=== PATIENT | female | born 1945 | race African-American/Black ===

== ENCOUNTER 2018-11-15 23:41 | Inpatient (IN) | payer BC, OTHER ==
[~2018-11-15] VITALS: Ht 172.7 cm; Wt 65.3 kg
[2018-11-16 00:34] LABS: APPEARANCE,URINE Clear (CLEAR); BILIRUBIN,URINE Negative (NEGATIVE); BLOOD, URINE Negative Ery/uL (NEGATIVE); COLOR,URINE Yellow (YELLOW); KETONES,URINE Negative (NEGATIVE); LEUKOCYTE ESTERASE ,URINE Small (NEGATIVE); NITRITE, URINE Negative (NEGATIVE); PH,URINE 5.5 (5.0-8.0); PROTEIN,URINE 30 mg/dl (NEGATIVE); UGLUCOSE Negative (NEGATIVE)
--- NOTE | 2018-11-16 00:47 | NUR ---
BIBDAUGHTER FROM [facility]. TO ER BED 13. AAOX2. NAD NOTED, BREATHING EVEN AND UNLABORED. COOPERATIVE AND COMPLAINTS. AMBULATORY. C/O AGGRESSIVE BEHAVIOR REPORTED HITTING STAFF AT THE BOARD AND CARE SHE IS STAYING AT. DAUGTHER REPORTS THAT SHE HAS BEEN MORE AND MORE AGGRESSIVE TOWARDS STAFF. PT IS STAYING AT [facility] WITH HER MOTHER. AT BESIDE FOR EVAL. AWAITING ORDERS
[2018-11-16 00:52] LABS: BASOPHILS % (AUTO) 0.6 % (0.0-2.0); EOSINOPHILS % (AUTO) 1.1 % (0.0-6.0); HEMATOCRIT 40 % (33-45); HEMOGLOBIN 12.9 g/dL (11.5-14.8); LYMPHOCYTES # (AUTO) 1.9 /CMM (0.8-4.8); LYMPHOCYTES % (AUTO) 40.7 % (20.0-44.0); MEAN CORPUSCULAR HGB CONC 33 g/dl (31.0-36.0); MEAN CORPUSCULAR VOLUME 88 fL (82-100); MONOCYTES # (AUTO) 0.5 /CMM (0.1-1.30); MONOCYTES % (AUTO) 10.4 % (2.0-12.0); NEUTROPHILS # (AUTO) 2.2 /CMM (1.8-8.9); NEUTROPHILS % (AUTO) 47.2 % (43.0-81.0); PLATELET COUNT (AUTO) 129 /CMM (150-450); RED BLOOD CELL COUNT(AUTO) 4.52 MIL/uL (4.0-5.2); WHITE BLOOD COUNT (AUTO) 4.7 K/uL (4.3-11.0)
[2018-11-16 01:03] LABS: CALCIUM, SERUM 8.9 mg/dL (8.5-10.1); CARBON DIOXIDE 25 mmol/L (21-32); CHLORIDE 108 mmol/L (98-107); CREATININE 0.8 mg/dL (0.6-1.3); GLUCOSE 104 mg/dL (74-106); POTASSIUM 3.6 mmol/L (3.5-5.1); SODIUM SERUM 141 mmol/L (136-145); UREA NITROGEN, BLOOD 20 mg/dL (7-18)
[2018-11-16 01:07] LABS: BACTERIA,URINE Few /HPF (None Seen); RBC,URINE 0-2 /HPF (0-2); SQUAMOUS EPITHELIAL CELL,UR Few /HPF (None Seen)
[2018-11-16 01:10] LABS: ALANINE AMINOTRANSFERASE 62 U/L (12-78); ALBUMIN 3.5 g/dL (3.4-5.0); ALCOHOL, BLOOD < 3 mg/dL (0-0); ALKALINE PHOSPHATASE 63 U/L (46-116); ASPARTATE AMINOTRANSFERASE 44 U/L (15-37); BILIRUBIN,DIRECT 0.1 mg/dL (0.0-0.2); BILIRUBIN,TOTAL 0.3 mg/dL (0.2-1.0); TOTAL PROTEIN, SERUM 7.6 g/dL (6.4-8.2)
[2018-11-16 01:11] LABS: ACETAMINOPHEN 0 ug/ml (10-30)
[2018-11-16 01:22] LABS: THYROID STIMULATING HORMONE 3.262 uIU/mL (0.358-3.74)
[2018-11-16] MEDS ORDERED: HYDR-4077 PO (04:12)
--- NOTE | 2018-11-16 04:20 | NUR ---
PT TO [facility] VIA WHEELCHAIR.
[2018-11-16 04:25] VITALS: BP 190/100
--- NOTE | 2018-11-16 04:25 | NUR ---
GPS ADMISSION NOTES: ADMITTED A 73-YR OLD MALE, FROM [facility] ON 5150 FOR GD. PER HOLD, PT. IS CONFUSED AND DELUSIONAL. PATIENT WAS AGGRESSIVE WITH HER CAREGIVER BUT DOES NOT REMEMBER THE EVENTS. PATIENT IS AGITATED. UNABLE TO PROVIDE FOR HER FOOD, RETIREMENT OR CLOTHING D/T MENTAL DISORDER. UPON FACE TO FACE ASSESSMENT, PATIENT IS AWAKE AND ALERT AND ORIENTED X1. PATIENT IS CALM ,COOPERATIVE, PLEASANT, CONFUSED, DISORIENTED, INTERACTS WHEN ENGAGED. NO AGITATION NOTED. REALITY ORIENTATION PROVIDED. PT. WAS ADVISED OF THE HOLD. PT'S RIGHTS DISCUSSED GUIDE TO PRESCRIPTION MEDICATIONS GIVEN. IN NO APPARENT DISTRESS NOTED. BELONGINGS WERE INVENTORIED AND CHECKED FOR CONTRABAND. PT. IS UNDER THE PSYCHIATRIC CARE OF DR. SANDERSON ORDERS OBTAINED, AND UNDER THE CARE OF TRESSA MORRIS. NOTIFIED OF PT'S ADMISSION AND MED RECON WELL PT'S ELEVATED BP. PER TRESSA MORRIS MED RECON WILL BE DONE BY AM PROVIDER AND FOR ELEVATED BP NO NEW ORDER GIVEN AT THIS TIME. SKIN ASSESSMENT PERFORMED INTACT. PT. REFUSED TO SIGN ADMITTING CONSENTS D/T MENTAL STATUS. BED LOCKED AND PLACED IN LOWEST POSITION. SAFETY PRECAUTIONS FOR FALL INITIATED. CALL MALLOY IN REACH. WILL CONTINUE TO MONITOR PT. Q15 MINS. FOR SAFETY AND BEHAVIOR. Addendum: 11/16/18 at 0650 by FOREIGN BENZ RN 0640- RECHECKED BP144/91 HR 60
[2018-11-16] MEDS ORDERED: MAGNESIUM HYDROXIDE 30 ML UDC PO PRN (05:00)
[2018-11-16] MEDS ORDERED: ACETAMINOPHEN 325 MG TABLET PO PRN (05:00)
[2018-11-16] MEDS ORDERED: MAG HYDROX/AL HYDROX/SIMETH 30 ML UDC PO PRN (05:00)
[2018-11-16] MEDS: LORAZEPAM 0.5 MG TABLET PO PRN (05:39)
[2018-11-16 06:40] VITALS: BP 144/91
[2018-11-16 07:36] LABS: CREATININE 0.8 mg/dL (0.6-1.3)
[2018-11-16 08:00] VITALS: BP 160/78
[2018-11-16] MEDS: hydrALAZINE HCL 50 MG TABLET PO SCH (10:16)
--- NOTE | 2018-11-16 12:20 | NUR ---
Initial discharge planning: Pt was staying with Bety, a caregiver and family friend who also operates [facility], a board and care facility in [place], [place], before being admitted to [facility]. Per pt�s daughter, Sonal, the caregiver, Bety , is open to having pt return to board and care as long as pt is appropriate and compliant with her medication. SW will work with the pt, pt family, and the MD regarding appropriate discharge planning. SW will form a safe and proper discharge.
--- NOTE | 2018-11-16 12:21 | NUR ---
SW spoke with pt's daughter and next of kin, Sonal Young [[phone]], who confirmed her participation in her mother's plan of care. Per, pt's daughter, her mother has been stuggling with dementia for the past 6 years and has become increasingly aggressive. Pt is now staying with Bety, a personal friend of the daughter who also owns a board a care facility, [facility], [address] in [place], [place]. Per pt, the initial plan would be for her mother to return to the care of Bety, if she is appropriate for that facility. Otherwise, daughter is also open to exploring other options for her mother.
--- NOTE | 2018-11-16 12:27 | NUR ---
SHEYLA spoke with Bety , personal friend and caregiver of pt. Bety confirmed that she will be able to accept pt at her [facility], [facility] at [address] [place] [address], as long as pt is appropriate for the level of care that she is able to provide and compliant with her medication
[2018-11-16] MEDS: CEPHALEXIN MONOHYDRATE 250 MG CAPSULE PO SCH ×3 (14:04→23:00)
--- NOTE | 2018-11-16 14:04 | NUR ---
RN NOTE: PATIENT WAS SLEEPING, ABX ADMINISTERED LATE.
--- NOTE | 2018-11-16 15:37 | NUR ---
Group Note: Pt attended group therapy session on 11/16/18 at 2:30pm discussing conflict resolution techniques for while they are in the hospital and after discharge but was not engaged and did not participate due to cognitive impairment.
[2018-11-16 16:00] VITALS: BP 142/78
[2018-11-16] MEDS: QUETIAPINE FUMARATE 25 MG TABLET PO SCH (17:37)
[2018-11-16 20:35] VITALS: BP 143/64
[2018-11-16] MEDS: TEMAZEPAM 7.5 MG CAPSULE PO PRN (23:00)
[2018-11-17] MEDS: CEPHALEXIN MONOHYDRATE 250 MG CAPSULE PO SCH ×4 (06:33→21:27)
[2018-11-17 08:00] VITALS: BP 150/78
[2018-11-17] MEDS: QUETIAPINE FUMARATE 25 MG TABLET PO SCH ×2 (08:10→16:21)
[2018-11-17] MEDS: hydrALAZINE HCL 50 MG TABLET PO SCH (08:11)
[2018-11-17] MEDS: LORAZEPAM 0.5 MG TABLET PO PRN ×2 (08:11→19:45)
--- NOTE | 2018-11-17 08:12 | NUR ---
RN NOTE: PATIENT RESTLESS THIS MORNING WITH INCREASED ANXIETY, PRN ATIVAN GIVEN.
[2018-11-17 09:16] LABS: CHOLESTEROL 157 mg/dL (<200); HDL CHOLESTEROL 43 mg/dL (40-60); LDL 104 mg/dL (0-99); TRIGLYCERIDES 65 mg/dL (30-150)
--- NOTE | 2018-11-17 09:20 | NUR ---
UR Note: SHEYLA faxed a clinical review to [facility] with attention to Ronda to the fax number: [phone], and [facility] to the fax number: [phone].
[2018-11-17 16:00] VITALS: BP 142/72
--- NOTE | 2018-11-17 16:29 | NUR ---
GROUP NOTE: SW prompted pt to attend group on 11/17/18 at 2:30pm discussing goal setting for while they are in the hospital and after discharge, but pt was sleeping and not easily aroused.
--- NOTE | 2018-11-17 17:58 | NUR ---
RN NOTE: TRIED TO COLLECT URINE FOR UA FROM PATIENT MULTIPLE TIMES BUT PATIENT HAS ALREADY USED THE REST ROOM. WILL CONTINUE TO ATTEMPT ON GETTING URINE SAMPLE.
--- NOTE | 2018-11-17 18:55 | NUR ---
RN NOTE: URINE COLLECTED. CONTACTED LAB FOR QUALITY CONTROL TECH.
--- NOTE | 2018-11-17 20:00 | NUR ---
ATIVAN 0.5 MG ADMINISTERED TO THE PATIENT FOR PACING IN THE MAR WAY
[2018-11-17 20:26] VITALS: BP 140/61
[2018-11-17] MEDS: TEMAZEPAM 7.5 MG CAPSULE PO PRN (21:28)
[2018-11-18] MEDS: CEPHALEXIN MONOHYDRATE 250 MG CAPSULE PO SCH ×4 (06:00→23:47)
[2018-11-18 08:00] VITALS: BP 158/89
[2018-11-18] MEDS: hydrALAZINE HCL 50 MG TABLET PO SCH (08:20)
[2018-11-18] MEDS: QUETIAPINE FUMARATE 25 MG TABLET PO SCH ×2 (08:20→16:19)
--- NOTE | 2018-11-18 09:42 | NUR ---
UR Note: SHEYLA faxed a clinical review to [facility] with attention to Ronda to the fax number: [phone].
--- NOTE | 2018-11-18 09:42 | NUR ---
UR Note: SHEYLA faxed a clinical review to [facility] to the fax number: [phone].
[2018-11-18] MEDS: LORAZEPAM 0.5 MG TABLET PO PRN (12:19)
--- NOTE | 2018-11-18 12:21 | NUR ---
RN NOTE: PATIENT APPEARS TO BE RESTLESS AND ANXIOUS, PRN ATIVAN GIVEN.
--- NOTE | 2018-11-18 13:57 | NUR ---
RN NOTE: CONTACTED CAROL ANN IN REGARDS TO CHANGING HER DIET TO REGULAR FROM CARDIAC. MD IS OK WITH DIET ORDER CHANGE. WILL INITIATE.
--- NOTE | 2018-11-18 15:24 | NUR ---
GROUP NOTE: SW prompted pt to attend group on 11/18/18 at 2:30pm discussing managing mental health by being compliant with medication for while they are in the hospital and after discharge, but pt unable to attend.
[2018-11-18 16:00] VITALS: BP 132/72
[2018-11-18 20:00] VITALS: BP 148/82
[2018-11-18 21:08] VITALS: BP 148/82
[2018-11-18] MEDS: DONEPEZIL 5 MG TABLET PO SCH (21:43)
[2018-11-18] MEDS: TEMAZEPAM 7.5 MG CAPSULE PO PRN (23:52)
--- NOTE | 2018-11-18 23:52 | NUR ---
CATRACHO BHATT NOTES AWAKE,RESTORIL 7.7MG PO GIVEN.WILL MONITOR HOURS OF SLEEP. Addendum: 11/18/18 at 2356 by BRETT MILAN RN GIVEN 7.5MG OF RESTORIL
[2018-11-19] MEDS: CEPHALEXIN MONOHYDRATE 250 MG CAPSULE PO SCH ×4 (05:58→23:45)
--- NOTE | 2018-11-19 06:47 | NUR ---
GPS RN NOTES AWAKE,CALM AND QUIET,MED COMPLIANT,NON COMBATIVE.
[2018-11-19 08:00] VITALS: BP 198/99
[2018-11-19] MEDS: QUETIAPINE FUMARATE 25 MG TABLET PO SCH ×2 (08:21→16:59)
[2018-11-19] MEDS: hydrALAZINE HCL 50 MG TABLET PO SCH (08:21)
--- NOTE | 2018-11-19 08:37 | NUR ---
UR Note: SHEYLA faxed a clinical review to [facility] to the fax number: [phone]
--- NOTE | 2018-11-19 08:38 | NUR ---
UR Note: SHEYLA faxed a clinical review to [facility] with attention to Ronda to the fax number: [phone].
[2018-11-19 16:00] VITALS: BP 148/84
[2018-11-19] MEDS: LORAZEPAM 0.5 MG TABLET PO PRN (20:17)
--- NOTE | 2018-11-19 20:19 | NUR ---
GPS RN NOTES: PT.NOTED VERY AGGRESSIVE, ANXIOUS , HYPERVERBAL, YELLING ,SCREAMING ,NOT FOLLOWING ANY REDIRECTIONS ,PACING IN ROOM HALLWAY,RESTLESS, ATIVAN 0.5 MG PO PRN GIVEN , WILL CONTINUE TO MONITOR.
[2018-11-19 20:32] VITALS: BP 157/84
[2018-11-19] MEDS: DONEPEZIL 5 MG TABLET PO SCH (21:10)
[2018-11-20] MEDS: LORAZEPAM 0.5 MG TABLET PO PRN (03:41)
[2018-11-20] MEDS: CEPHALEXIN MONOHYDRATE 250 MG CAPSULE PO SCH ×4 (05:15→23:01)
[2018-11-20 08:00] VITALS: BP 186/94
[2018-11-20] MEDS: hydrALAZINE HCL 50 MG TABLET PO SCH (08:56)
[2018-11-20] MEDS: QUETIAPINE FUMARATE 25 MG TABLET PO SCH ×2 (08:56→17:00)
[2018-11-20 16:00] VITALS: BP 166/89
[2018-11-20 20:00] VITALS: BP 152/91
[2018-11-20] MEDS: DONEPEZIL 5 MG TABLET PO SCH (21:15)
[2018-11-20] MEDS: TEMAZEPAM 7.5 MG CAPSULE PO PRN (23:01)
[2018-11-21] MEDS: CEPHALEXIN MONOHYDRATE 250 MG CAPSULE PO SCH (05:35)
[2018-11-21 08:00] VITALS: BP 165/98
[2018-11-21] MEDS: QUETIAPINE FUMARATE 25 MG TABLET PO SCH ×2 (09:05→16:39)
[2018-11-21] MEDS: hydrALAZINE HCL 50 MG TABLET PO SCH (09:05)
[2018-11-21 16:00] VITALS: BP 165/89
[2018-11-21] MEDS: LORAZEPAM 0.5 MG TABLET PO PRN (16:39)
--- NOTE | 2018-11-21 17:32 | NUR ---
RN NOTE: PATIENT WAS FEELING RESTLESS, ANXIOUS. PRN ATIVAN GIVEN PO
--- NOTE | 2018-11-21 17:55 | NUR ---
RN NOTE: PATIENT'S BP WAS 165/89 P 80. LUISA, [employer] CONTACTED. ORDERED HYDRALAZINE 10 MG PO ONE TIME ONLY.
[2018-11-21] MEDS ORDERED: hydrALAZINE HCL 10 MG TABLET PO ONE (18:00)
[2018-11-21 20:28] VITALS: BP 150/80
[2018-11-21] MEDS: DONEPEZIL 5 MG TABLET PO SCH (21:15)
[2018-11-22 08:00] VITALS: BP 154/87
[2018-11-22] MEDS: LORAZEPAM 0.5 MG TABLET PO PRN (09:08)
[2018-11-22] MEDS: QUETIAPINE FUMARATE 25 MG TABLET PO SCH ×3 (09:08→21:10)
[2018-11-22] MEDS: hydrALAZINE HCL 50 MG TABLET PO SCH ×2 (09:08→16:38)
--- NOTE | 2018-11-22 09:38 | NUR ---
UR Note: SHEYLA faxed a clinical review to [facility] to the fax number: [phone]
--- NOTE | 2018-11-22 09:38 | NUR ---
UR Note: SHEYLA faxed a clinical review to [facility] with attention to Ronda to the fax number: [phone].
--- NOTE | 2018-11-22 10:44 | NUR ---
RN NOTE: PATIENT WAS VERY ANXIOUS AND RESTLESS. PRN ATIVAN PO GIVEN.
[2018-11-22] MEDS: MEMANTINE HCL 5 MG TABLET PO SCH ×2 (13:11→16:37)
[2018-11-22 14:02] LABS: BASOPHILS % (AUTO) 0.3 % (0.0-2.0); EOSINOPHILS % (AUTO) 2.9 % (0.0-6.0); HEMATOCRIT 42 % (33-45); HEMOGLOBIN 13.3 g/dL (11.5-14.8); LYMPHOCYTES # (AUTO) 1.8 /CMM (0.8-4.8); LYMPHOCYTES % (AUTO) 30.5 % (20.0-44.0); MEAN CORPUSCULAR HGB CONC 32 g/dl (31.0-36.0); MEAN CORPUSCULAR VOLUME 88 fL (82-100); MONOCYTES # (AUTO) 0.5 /CMM (0.1-1.30); NEUTROPHILS # (AUTO) 3.4 /CMM (1.8-8.9); NEUTROPHILS % (AUTO) 58.3 % (43.0-81.0); PLATELET COUNT (AUTO) 162 /CMM (150-450); RED BLOOD CELL COUNT(AUTO) 4.73 MIL/uL (4.0-5.2); WHITE BLOOD COUNT (AUTO) 5.9 K/uL (4.3-11.0)
[2018-11-22 14:23] LABS: ALANINE AMINOTRANSFERASE 63 U/L (12-78); ALBUMIN 3.3 g/dL (3.4-5.0); ALKALINE PHOSPHATASE 62 U/L (46-116); ASPARTATE AMINOTRANSFERASE 36 U/L (15-37); BILIRUBIN,TOTAL 0.2 mg/dL (0.2-1.0); CALCIUM, SERUM 9.2 mg/dL (8.5-10.1); CARBON DIOXIDE 27 mmol/L (21-32); CHLORIDE 106 mmol/L (98-107); GLUCOSE 141 mg/dL (74-106); MAGNESIUM 2.1 mg/dL (1.8-2.4); SODIUM SERUM 142 mmol/L (136-145); TOTAL PROTEIN, SERUM 7.7 g/dL (6.4-8.2); UREA NITROGEN, BLOOD 20 mg/dL (7-18)
[2018-11-22 16:00] VITALS: BP 147/76
[2018-11-22 20:10] VITALS: BP 158/92
[2018-11-22] MEDS: DONEPEZIL 5 MG TABLET PO SCH (21:10)
[2018-11-23 08:00] VITALS: BP 131/92
[2018-11-23] MEDS: MEMANTINE HCL 5 MG TABLET PO SCH ×2 (08:50→16:44)
[2018-11-23] MEDS: hydrALAZINE HCL 50 MG TABLET PO SCH ×3 (08:51→16:44)
[2018-11-23] MEDS: QUETIAPINE FUMARATE 25 MG TABLET PO SCH ×3 (08:54→21:18)
--- NOTE | 2018-11-23 11:18 | NUR ---
UR Note: SHEYLA faxed a clinical review to [facility] with attention to Ronda to the fax number: [phone].
--- NOTE | 2018-11-23 11:19 | NUR ---
UR Note: SHEYLA faxed a clinical review to [facility] to the fax number: [phone].
--- NOTE | 2018-11-23 11:24 | NUR ---
SW spoke with Bety , personal friend and caregiver of pt and stated that the pt is being discharged the following day and the SW inquired about whether or not the pt can go to [facility]. Bety stated that she had spoken to the pts daughter and that the daughter wanted to take the pt to her home first. SW stated that she would contact the daughter in that case.
--- NOTE | 2018-11-23 11:27 | NUR ---
SHEYLA called the pt's daughter and next of kin, Sonal Young [[phone]], and informed her that the pts discharge date has been set for the following day. She stated that she would like to come pick the pt up around 4:30pm and take her to her home located at [address] [place] [address], [place] [id number].
--- NOTE | 2018-11-23 13:46 | NUR ---
SHEYLA spoke to Amber ([phone]) from [facility] and she stated that the pts insurance may be covered at their facility and asked the SW to send a referral over while the daughter is contacted regarding this change in the discharge plan.
--- NOTE | 2018-11-23 13:48 | NUR ---
SHEYLA faxed a referral to [facility] with attention to Amber to the fax number: [phone].
--- NOTE | 2018-11-23 13:48 | NUR ---
SHEYLA called the pts daughter, Perfecto Kinsey ([phone]), and informed her that the pts insurance may be accepted at the snf and that a referral was being sent over so that the paperwork can be reviewed. SHEYLA stated that she would inform the family once a decision is made from the facility.
[2018-11-23 16:00] VITALS: BP 146/87
[2018-11-23] MEDS: DONEPEZIL 5 MG TABLET PO SCH (21:18)
[2018-11-23 21:49] VITALS: BP 179/90
[2018-11-23] MEDS: TEMAZEPAM 7.5 MG CAPSULE PO PRN (21:50)
[2018-11-23 22:00] VITALS: BP 145/88
--- NOTE | 2018-11-24 08:55 | NUR ---
UR Note: SHEYLA faxed a clinical review to [facility] with attention to Ronda to the fax number: [phone].
--- NOTE | 2018-11-24 08:55 | NUR ---
UR Note: SHEYLA faxed a clinical review to [facility] to the fax number: [phone].
[2018-11-24] MEDS: MEMANTINE HCL 5 MG TABLET PO SCH (09:06)
[2018-11-24] MEDS: hydrALAZINE HCL 50 MG TABLET PO SCH ×2 (09:08→12:30)
[2018-11-24] MEDS: QUETIAPINE FUMARATE 25 MG TABLET PO SCH ×2 (09:08→12:32)
[2018-11-24 09:18] VITALS: BP 164/90
--- NOTE | 2018-11-24 10:09 | NUR ---
SW spoke to Misa ([phone]) from [facility] who stated that the pt was not accepted to their facility.
--- NOTE | 2018-11-24 10:14 | NUR ---
SHEYLA called the pt's daughter and next of kin, Sonal Young [[phone]], and informed her that the pt was not accepted to [facility]. She stated that she would arrive around 4:30pm to warehouse order picker the pt.
--- NOTE | 2018-11-24 10:16 | NUR ---
UR Note: SHEYLA called Sadia at [facility] ([phone]. [phone]) and informed her that the pt will be discharging today to her daughter's house in [place] and she stated that she would make a psychiatry appointment for the pt and will call the SW back.
--- NOTE | 2018-11-24 10:27 | NUR ---
Perfecto Kinsey ([phone]), pts daughter, called the SW and asked about the reasoning behind the pt not being accepted to [facility] and then asked about the reasoning behind a SNF placement. She then stated that she would like to look into SNF options that the insurance company would be willing to offer but the SW informed her that the insurance company would need to see a high need for authorization. SW informed her that a discharge order has been placed and that the pts sister will be arriving to pick the pt up today.
[2018-11-24 12:30] VITALS: BP 157/89
--- NOTE | 2018-11-24 15:17 | NUR ---
Discharge Note: Pt was discharged back to her daughter�s home located at [address], [place] [address]; ([phone]). Pts daughter, Sonal ([phone])�s son, picked up the pt up around 3PM. Upon discharge, the pt appeared to be in a euthymic mood and presented with a calm affect. Pt denied both suicidal and homicidal ideation as well as auditory and visual hallucinations. Pt will be under the care of her psychiatrist, Dr. Stef Dinero, located at [address], [address], [place] [address]; phone: [phone]; fax: [phone]. Appt with her psychiatrist is on 12/25/18 at 10:30am. Pt also has a therapy appointment with Dr. Dunia Cote at the same location on 11/29/18 at 2pm. Pt will also be under the care of her home comfort advisor, Dr. Escalante, located at [address], [place] [address]; .
--- NOTE | 2018-11-24 15:18 | NUR ---
UR Note: SHEYLA faxed a discharge clinical to [facility] to the fax number: [phone].
--- NOTE | 2018-11-24 15:18 | NUR ---
UR Note: SHEYLA faxed a discharge clinical to [facility] with attention to Ronda to the fax number: [phone].
--- NOTE | 2018-11-24 15:55 | NUR ---
GROUP NOTE: Goal: Patient will attend group being held today from 11AM-11:45AM in the activities room and participate and/or actively listen to peers and be respectful. Intervention: SW invited patient to attend group session with peers regarding their support system. SW respected patient�s self-determination and will continue to invite patient to group. Response: Patient declined to participate in today�s group social service worker session. Plan: Patient will be invited to attend next social service worker group session held.
--- NOTE | 2018-11-24 16:18 | NUR ---
CLIPMAN NOTE: PATIENT IS A 73 YEAR OLD FEMALE DISCHARGED TO DAUGHTER'S HOME LOCATED AT [address] [place] [address] [facility] [id number] . PATIENT IS IN STABLE CONDITION. VSS. NO ACUTE DISTRESS NOTED. NO COMPLAINTS. COMPLIANT WITH MEDICATION MANAGEMENT. COOPERATIVE WITH PLAN OF CARE. PSYCHIATRIC TREATMENT PLANS MET. MEDICAL TREATMENT PLANS DEFERRED FOR CONTINUAL MONITORING. DENIES SI/HI VAH AT THE TIME OF DISCHARGE. SKIN INTACT AND DOCUMENTED IN CHART. EDUCATED PATIENT ABOUT AFTERCARE WITH COPY PROVIDED. RETURNED PERSONAL BELONGINGS TO PATIENT. MEDICATIONS RECONCILED WITH TRESSA MORAN AND DR. SANDERSON ALONG WITH PSYCHIATRIC DISCHARGE ORDERS. DISCHARGE PAPERWORK SIGNED. FOR FOLLOW UP WITH PSYCHIATRIST DR ANA NORWOOD LOCATED AT [address] [facility] [id number] ON 12/25/2018 @ 1030, THERAPY APPOINTMENT WITH DR HUDSON LIGHT AT THE SAME LOCATION ON 11/29/2018 @ 1400 AND PATIENT CARE COORDINATOR WITH DR RASHEED LOCATED AT [address] [facility] [address] WITHIN 1 WEEK. PATIENT'S GRANDSON (BERNADETTE COLE) ARRIVED TO BIAS MACHINE OPERATOR PATIENT AND LEFT THE [facility] GPS AT 1500 VIA PRIVATE TRANSPORTATION.
== END 2018-11-24 15:00 | disposition home or self-care (01) | DRG 885 ==
LOC: ER 23:45 → GPS 11-16 03:53
PROVIDERS: ADMIT Psychiatry & Neurology Psychiatry; ATTEND Internal Medicine
DX: F29 Unspecified psychosis not due to a substance or known physiological condition (principal); F01.50 Vascular dementia, unspecified severity, without behavioral disturbance, psychotic disturbance, mood disturbance, and anxiety; N39.0 Urinary tract infection, site not specified; I10 Essential (primary) hypertension; G30.9 Alzheimer's disease, unspecified; F02.80 Dementia in other diseases classified elsewhere, unspecified severity, without behavioral disturbance, psychotic disturbance, mood disturbance, and anxiety; F41.9 Anxiety disorder, unspecified; F32.9 Major depressive disorder, single episode, unspecified; F17.210 Nicotine dependence, cigarettes, uncomplicated
CPT/HCPCS: 36415; 70450-TC; 71045-TC; 80048-TC; 80053-TC; 80061-TC; 80076-TC; 80305; 81000-TC; 82565-TC; 83735-TC; 84443-TC; 84484-TC; 85025-TC; 87081-TC; 87086-TC; G0480